=== PATIENT | female | born 1960 | race Caucasian/White ===

== ENCOUNTER → 2025-06-29 05:55 | Outpatient (REF) | payer MEDICAID, SELFPAY ==
[2025-06-29 08:48] LABS: Hematocrit 34.2 % (37-47); Hemoglobin 9.6 g/dL (12.0-15.0); Mean Corp Hgb Conc 28.1 g/dL (32-36); Mean Corpuscular Volume 86.6 fL (81-99); Mean Platelet Vol. 11.4 fl (6.2-12.0); Platelet Count 355 K/mm3 (150-450); RBC Distribution Width CV 17.5 % (11.6-14.6); RBC Distribution Width SD 55.3 fl (35.1-43.9); Red Blood Count 3.95 M/mm3 (4.2-5.4); White Blood Count 9.9 K/mm3 (4.4-11.0)
== END ==
LOC: OLS.SANC 05:55
DX: J44.9 Chronic obstructive pulmonary disease, unspecified
CPT/HCPCS: 36415; 85027